=== PATIENT | female | born 2000 | race Caucasian/White ===

== ENCOUNTER 2019-07-31 10:09 | Emergency (ER) | payer MEDICAID, OTHER ==
[~2019-07-31] VITALS: Ht 160 cm; Wt 52.2 kg
--- NOTE | 2019-07-31 10:34 | NUR ---
PATIENT WAS SEEN BY MD. PATIENT STATES SHE HAS BEEN ABLE TO HOLD FLUIDS DOWN. DC, RX AND FOLLOW UP INSTRUCTIONS GIVEN AND EXPLAINED TO PATIENT WHO STATES SHE UNDERSTANDS ALL INSTRUCTIONS.
== END 2019-07-31 10:36 | disposition home or self-care (01) ==
LOC: ER 10:09
DX: K52.9 Noninfective gastroenteritis and colitis, unspecified (principal)
CPT/HCPCS: A4663

== ENCOUNTER 2020-11-30 08:16 | Emergency (ER) | payer MEDICAID, OTHER ==
[~2020-11-30] VITALS: Ht 160 cm; Wt 52.2 kg
[2020-11-30 08:41] LABS: *BILIRUBIN,URIN NEGATIVE (NEGATIVE); *BLOOD, URINE 2+ (NEGATIVE); *CLARITY,URINE CLOUDY (CLEAR); *COLOR,URINE YELLOW (YELLOW); *KETONES,URINE NEGATIVE (NEGATIVE); *UROBILINOGEN,URINE 0.2 E.U./dl (NORMAL); LEUKOCYTE ESTERASE ,URINE 1+ (NEGATIVE); NITRITE, URINE POSITIVE (NEGATIVE); UGLUCOSE NEGATIVE (NEGATIVE)
[2020-11-30 08:44] LABS: *URINE HCG, QUAL NEGATIVE (NEGATIVE)
[2020-11-30] MEDS ORDERED: HYDROCODONE/APAP 10-325 MG TABLET ONE (08:45)
[2020-11-30] MEDS ORDERED: HYDROCODONE/APAP 10-325 MG TABLET PO ONE (08:45)
[2020-11-30] MEDS ORDERED: SULF-11 PO (09:19)
[2020-11-30] MEDS ORDERED: SULFAMETH/TRIMETH 800/160 MG TABLET PO ONE (09:30)
--- NOTE | 2020-11-30 09:30 | NUR ---
Patient discharged to home in stable condition with brisk steady gait. Written and verbal after care instructions given to patient. Patient verbalizes understanding & compliance of instructions. Stressed follow up with primary doctor or return to ER for worsening s/s.
[2020-11-30 09:34] LABS: MUCUS,URINE MODERATE /LPF (0-FEW); SQUAMOUS EPITHELIAL CELL,UR MANY /HPF (NONE SEEN)
[2020-11-30] MEDS ORDERED: SULFAMETH/TRIMETH 800/160 MG TABLET ONE (09:34)
[2020-11-30 09:37] LABS: BACTERIA,URINE MODERATE /HPF (NONE SEEN)
[2020-11-30 09:38] LABS: CALCIUM PHOSPHATE CRYSTALS,UR FEW /HPF (NONE SEEN)
== END 2020-11-30 09:31 | disposition home or self-care (01) ==
LOC: ER 08:16
DX: R51.9 Headache, unspecified (principal); N39.0 Urinary tract infection, site not specified
CPT/HCPCS: 70450; 84703; 87086; A4663